=== PATIENT | male | born 1965 ===

== ENCOUNTER 2024-12-31 06:06 | Day surgery (SDC) | payer BC, SELFPAY ==
[2024-12-26 09:07] LABS: Hematocrit 41.9 % (39.0-52.0); Hemoglobin 15.0 g/dL (13.0-18.0); Mean Corp Hgb Conc. 35.8 g/dL (33.0-37.0); Mean Corpuscular Volume 87.7 fL (80.0-94.0); Platelet Count 217 10^3/uL (130-400); Red Cell Dist. Width 12.4 % (11.5-14.5)
[2024-12-26 09:37] LABS: ALT (SGPT) 23 U/L (0-50); AST (SGOT) 25 U/L (17-59); Albumin 4.6 g/dl (3.5-5.0); Alkaline Phosphatase 55 U/L (38-126); Blood Urea Nitrogen 23 mg/dl (9-20); Calcium 9.3 mg/dl (8.4-10.2); Carbon Dioxide 30 mmol/L (22-30); Chloride 105 mmol/L (98-107); Glucose 107 mg/dl (70-99); Potassium 5.0 mmol/L (3.5-5.1); Sodium 138 mmol/L (135-145); Total Protein 7.1 g/dl (6.3-8.2); eGFR > 60.00
[2024-12-26 13:55] VITALS: BMI 25.1
[2024-12-26 18:24] VITALS: BMI 25.1
[2024-12-31] VITALS (9 sets, daily range): BP systolic 122–135; BP diastolic 76–88
[2024-12-31] MEDS: NORMOSOL-R/PLASMALYTE-A 1000 IV (09:07)
[2024-12-31] MEDS: CELEBREX 200 MG PO (09:09)
[2024-12-31] MEDS: METHOCARBAMOL 1500 MG PO (09:09)
[2024-12-31] MEDS: LYRICA 150 MG PO (09:09)
[2024-12-31] MEDS: TYLENOL 1000 MG PO (09:09)
[2024-12-31] MEDS: DILAUDID 0.25 MG IV (12:06)
[2024-12-31] MEDS: ROXICODONE 10 MG PO (13:21)
== END 2024-12-31 13:37 | disposition home or self-care (01) ==
LOC: SDS 06:06
PROVIDERS: ATTENDING PHYSICIAN Orthopaedic Surgery Orthopaedic Surgery of the Spine
DX: M50.023 Cervical disc disorder at C6-C7 level with myelopathy (principal)
CPT/HCPCS: 22551; 22853; 20930; 72020; 80053; 85027; 87070; 93005; C1713